=== PATIENT | female | born 1945 | race Caucasian/White ===

== ENCOUNTER → 2016-11-05 | Outpatient (CLI) | payer OTHER | LOC: FIMAGING 11:53 | PROVIDERS: ATTEND Internal Medicine | DX: Z12.31 Encounter for screening mammogram for malignant neoplasm of breast (principal) | CPT/HCPCS: 90662; G0008; G0202 ==

== ENCOUNTER 2017-03-14 20:02 | Inpatient (IN) | payer OTHER ==
--- NOTE | 2017-03-14 20:38 | CPEKG ---
Heart Rate: 57 RR Interval: 1053 P-R Interval: 132 QRSD Interval: 86 QT Interval: 424 QTC Interval: 413 P Farnam: 71 QRS Farnam: -41 T Wave Farnam: 45 EKG Severity - BORDERLINE ECG - EKG Impression: SINUS RHYTHM EKG Impression: LEFT AXIS DEVIATION EKG Impression: BORDERLINE R WAVE PROGRESSION, ANTERIOR LEADS EKG Impression: BORDERLINE T ABNORMALITIES, ANTERIOR LEADS Electronically Signed By: Linda Villa 14-Mar-2017 22:04:36
[2017-03-14 20:42] LABS: PLATELET COUNT 243 10^3/uL (150-400)
--- NOTE | 2017-03-14 20:44 | EDPHY ---
H & P Time Seen by Provider: 03/14/17 20:13 HPI/ROS: CHIEF COMPLAINT: Abdominal pain HISTORY OF PRESENT ILLNESS: The patient is a 72 y/o female with a history of prior small bowel obstructions complaining of abdominal pain, onset 3:30 PM, 5 hours ago. She ate lunch normally at noon. Around 3:30 PM, she was sitting down when she developed generalized abdominal pain. She rates the pain as 8 or 9 out of 10. The pain is constant, located in the mid-abdomen and shoots upwards. No associated symptoms and no known alleviating or aggravating factors. She denies nausea, vomiting, diarrhea, or any other associated symptoms. She took 2 aspirin for the pain. She has a family history of aortic aneurysm. REVIEW OF SYSTEMS: A 10 point review of systems was performed and is negative with the exception of the elements mentioned in the history of present illness. Past Medical/Surgical History: 1. Hysterectomy 2. Bowel obstruction 3. Cholecystectomy 4. Asthma 5. Family history of aortic aneurisms Social History: Son at bedside, lives in [place], retired Smoking Status: Never smoked Physical Exam: General Appearance: Alert, pleasant, stoic, appears in pain Eyes: Pupils equal and round, no conjunctival pallor or injection ENT, Mouth: Mucous membranes moist Neck: Normal inspection Respiratory: Lungs are clear to auscultation Cardiovascular: Regular rate and rhythm Gastrointestinal: Abdomen is soft and non-tender, pulsatile mass in the upper abdomen Neurological: A&O, nonfocal exam Skin: Warm and dry Extremities: Normal inspection Psychiatric: Mood and affect normal Constitutional: Initial Vital Signs Temperature (C) 36.4 C 03/14/17 20:09 Heart Rate 68 03/14/17 20:09 Respiratory Rate 18 03/14/17 20:09 Blood Pressure 144/68 H 03/14/17 20:09 O2 Sat (%) 93 03/14/17 20:09 O2 Delivery Mode Room Air Allergies/Adverse Reactions: erythromycin base Allergy (Verified 03/14/17 20:07) No Allergies [NKDA] Allergy (Verified 05/21/10 15:33) Home Medications: Medication Instructions Recorded Albuterol [Proventil Inhaler HFA 2 puffs IH Q4 PRN 09/22/15 (*)] Fluticasone/Salmeter 100/50Mcg 1 puffs IH DAILY #0 09/22/15 [Advair 100/50 (*)] Levothyroxine [Synthroid 137 mcg 137 mcg PO DAILY06 03/15/17 (*)] Medical Decision Making - Diagnostics EKG Interpretation: EKG interpreted by me reveals normal sinus rhythm, rate 57, left axis deviation , poor R-wave progression, T-wave flattening in lead V2 and V3. Similar to EKG dated 09/22/2015. Imaging Results: CT scan of the abdomen and pelvis reveals mildly dilated SB and no aortic aneurysm. ED Course/Re-evaluation: The patient presents with sudden onset epigastric pain. On exam she has a pulsatile mass in her upper abdomen. She has a family history of aortic aneurysm. CT angiogram of the abdomen and pelvis ordered. CT scan is unremarkable and results discussed with the patient. Abdominal exam remains unchanged. GI cocktail given. Will reassess after GI cocktail. No change in epigastric pain after GI cocktail. Continues to have moderate to severe and persistent pain. Abdomen remains benign. Query early SBO. Dilaudid 0.5 mg IV and Zofran 4 mg IV given. Given unclear etiology of persistent pain, will admit for observation. NPO for now. The hospitalist service was consulted for admission. Differential Diagnosis: Differential diagnosis includes though it is not limited to appendicitis, cholecystitis, diverticulitis, pyelonephritis, bowel perforation, small bowel obstruction. - Data Points Laboratory Results: Laboratory Results 03/15/17 04:00 03/15/17 04:00 Medications Given: Enoxaparin Sodium (Lovenox) 40 mg SC DAILY [facility] Stop: 09/11/17 08:59 Last Admin: 03/17/17 11:56 Dose: 40 mg Hydromorphone HCl (Dilaudid) 2 mg PO Q4HRS PRN PRN Reason: Pain, Severe Able to Take PO Stop: 03/24/17 22:26 Last Admin: 03/15/17 08:44 Dose: 2 mg Hydromorphone HCl (Dilaudid) 0.2 - 1 mg IVP Q2 PRN PRN Reason: Pain, Severe Unable to Take PO Stop: 03/24/17 22:26 Last Admin: 03/17/17 01:33 Dose: 0.5 mg Potassium Chloride/Dextrose/Sod Cl (D5w 1/2 Ns W/ 20 Kcl/L) 1,000 mls @ 100 mls /hr IV CONT KERA Stop: 09/11/17 15:59 Last Admin: 03/17/17 05:43 Dose: 1,000 mls Lidocaine (Lidocaine 2% Viscous) 5 ml PO Q6HRS PRN PRN Reason: Mucositis, Mouth Pain Stop: 09/12/17 13:31 Last Admin: 03/16/17 14:45 Dose: 5 ml Metoclopramide HCl (Reglan Injection) 10 mg IVP Q6HRS PRN PRN Reason: Nausea/Vomiting, Can't Take PO Stop: 09/11/17 10:23 Last Admin: 03/15/17 11:13 Dose: 10 mg Miscellaneous Medication (Fluticasone/Salmeter 100/50mcg [Advair 100/50 (*)]) 1 puffs IH DAILY [facility] Stop: 09/12/17 08:59 Last Admin: 03/17/17 08:47 Dose: 1 inh Miscellaneous Medication (Levothyroxine [Synthroid 137 Mcg (*)]) 137 mcg PO DAILY06 [facility] Stop: 09/11/17 09:14 Last Admin: 03/17/17 05:44 Dose: 137 mcg Ondansetron HCl (Zofran Odt) 4 mg PO Q4HRS PRN PRN Reason: Nausea/Vomiting, Use 1st Stop: 09/10/17 22:26 Last Admin: 03/15/17 05:48 Dose: 4 mg Ondansetron HCl (Zofran) 4 - 8 mg IVP Q4HRS PRN PRN Reason: Nausea/Vomiting, Can't Take PO Stop: 09/10/17 22:26 Last Admin: 03/16/17 02:20 Dose: 4 mg Throat Lozenges (Cepacol Lozenge) 1 ea PO PRN PRN PRN Reason: Sore Throat Stop: 09/13/17 11:10 Last Admin: 03/17/17 11:56 Dose: 1 ea Discontinued Medications Hydrocodone Bitart/Acetaminophen ([place] 5/325mg Prepack#6) 1 btl TAKEHOME EDNOW ONE Stop: 03/14/17 22:28 Last Admin: 03/14/17 23:29 Dose: Not Given Al Hydroxide/Mg Hydroxide (Maalox Susp) 30 ml PO ONCE ONE Stop: 03/14/17 21:42 Last Admin: 03/14/17 21:59 Dose: 30 ml Diazepam (Valium 5 Mg Prepack#4) 1 btl TAKEHOME EDNOW ONE Stop: 03/14/17 22:28 Last Admin: 03/14/17 23:29 Dose: Not Given Hydromorphone HCl (Dilaudid) 0.5 mg IVP EDNOW ONE Stop: 03/14/17 22:21 Last Admin: 03/14/17 22:32 Dose: 0.5 mg Hydromorphone HCl (Dilaudid) 0.2 - 0.4 mg IVP Q4HRS PRN PRN Reason: Pain, Severe Unable to Take PO Stop: 03/24/17 22:26 Last Admin: 03/15/17 06:53 Dose: 0.4 mg Hyoscyamine Sulfate (Levsin, Hyomax-Sl) 0.25 mg PO ONCE ONE Stop: 03/14/17 21:42 Last Admin: 03/14/17 21:55 Dose: 0.25 mg Sodium Chloride (Ns) 1,000 mls @ 100 mls/hr IV CONT KERA Stop: 09/10/17 22:29 Last Admin: 03/15/17 10:16 Dose: 1,000 mls Lidocaine (Lidocaine 2% Viscous) 15 ml PO ONCE ONE Stop: 03/14/17 21:42 Last Admin: 03/14/17 21:55 Dose: 15 ml Ondansetron HCl (Zofran) 4 mg IVP EDNOW ONE Stop: 03/14/17 22:21 Last Admin: 03/14/17 22:32 Dose: 4 mg Ondansetron HCl (Zofran) 4 mg IVP Q4HRS PRN PRN Reason: Nausea/Vomiting, Can't Take PO Stop: 09/10/17 22:26 Last Admin: 03/14/17 23:59 Dose: 4 mg Departure - [facility] Clinical Impression: Abdominal pain Qualifiers: Abdominal location: epigastric Qualified Code(s): R10.13 - Epigastric pain Condition: Good
[2017-03-14] MEDS ORDERED: IOPAMIDOL (ISOVUE 370) 100 ML BTL IV ONE (20:51)
[2017-03-14] MEDS ORDERED: HYOSCYAMINE SULFATE 0.125 MG TAB PO ONE (21:41)
[2017-03-14] MEDS ORDERED: MAG HYDROX/AL HYDROX/SIMETH 30 ML UDCUP PO ONE (21:41)
[2017-03-14] MEDS ORDERED: LIDOCAINE 2% VISCOUS 15 ML UDCUP PO ONE (21:41)
[2017-03-14] MEDS ORDERED: ONDANSETRON 4 MG/2 ML VIAL IVP ONE (22:20)
[2017-03-14] MEDS ORDERED: HYDROmorphONE/DILAUDID 1 MG/ML INJ IVP ONE (22:20)
[2017-03-14] MEDS ORDERED: ACETAMINOPHEN 325 MG TAB PO PRN (22:27)
[2017-03-14] MEDS ORDERED: HYDROCOD/APAP 5/325 PREPACK#6 BTL TAKEHOME ONE (22:27)
[2017-03-14] MEDS ORDERED: DIAZEPAM 5 MG PREPACK#4 BTL TAKEHOME ONE (22:27)
[2017-03-14] MEDS ORDERED: ONDANSETRON 4 MG/2 ML VIAL IVP PRN (22:27)
[2017-03-14] MEDS ORDERED: ONDANSETRON DISINTEGRATING 4 MG TAB PO PRN (22:27)
--- NOTE | 2017-03-14 23:01 | PDGENHP ---
History and Physical - Chief Complaint Abdominal pain - History of Present Illness 72 yo F w/ hx of asthma and hypothyroid presents with abdominal pain. Patient states she noted sudden onset severe (8) central abdominal pain starting around 3 PM. The pain is sharp and does not vary. She denies nausea, vomiting, and diarrhea. She has had numerous abdominal surgeries in the past and thinks this feels like previous bowel obstructions. She also denies melena, BRBPR, and dysuria. History Information - Allergies/Home Medication List Allergies/Adverse Reactions: erythromycin base Allergy (Verified 03/14/17 20:07) No Allergies [NKDA] Allergy (Verified 05/21/10 15:33) Home Medications: Advair 100/50 (*) 1 puffs IH BID 09/22/15 [Last Taken 09/22/15 11:00] Albuterol [Proventil Inhaler HFA (*)] 2 puffs IH Q4 PRN 09/22/15 [Last Taken 12:00] Levothyroxine Sodium [Synthroid] 137 mcg PO DAILY 09/22/15 [Last Taken 09/22/15 08:00] I have personally reviewed and updated: family history, medical history - Past Medical History asthma Additional medical history: Hypothyroid - Surgical History Reports: cholecystectomy, hysterectomy Additional surgical history: Ex-lap for SBO ~20 years ago - Family History Positive for: CAD Additional family history: AAA - Social History Smoking Status: Never smoked Review of Systems Review of Systems: ROS: 10pt was reviewed & negative except for what was stated in HPI & below Physical Exam Physical Exam: Temp Pulse Resp BP Pulse Ox 36.8 C 65 18 128/64 H 95 03/14/17 21:17 03/14/17 22:06 03/14/17 22:06 03/14/17 22:06 03/14/17 22:06 Constitutional: no apparent distress, uncomfortable Eyes: PERRL, EOMI Ears, Nose, Mouth, Throat: moist mucous membranes, no oral mucosal ulcers Cardiovascular: regular rate and rhythym, systolic murmur Respiratory: no respiratory distress, clear to auscultation Gastrointestinal: normoactive bowel sounds, tenderness (Mild, central), No guarding, No rebound, No distension Skin: warm, normal color Musculoskeletal: full muscle strength, no muscle tenderness Neurologic: AAOx3, CN II-XII Intact Psychiatric: interacting appropriately, not anxious Lab Data & Imaging Review 03/14/17 20:30 03/14/17 20:30 WBC 10.90 10^3/uL (3.80-9.50) H 03/14/17 20:30 RBC 4.98 10^6/uL (4.18-5.33) 03/14/17 20:30 Hgb 16.4 g/dL (12.6-16.3) H 03/14/17 20:30 POC Hgb 15.6 gm/dL (12.6-16.3) 03/14/17 20:44 Hct 47.1 % (38.0-47.0) H 03/14/17 20:30 POC Hct 46 % (38-47) 03/14/17 20:44 MCV 94.6 fL (81.5-99.8) 03/14/17 20:30 MCH 32.9 pg (27.9-34.1) 03/14/17 20:30 MCHC 34.8 g/dL (32.4-36.7) 03/14/17 20:30 RDW 13.2 % (11.5-15.2) 03/14/17 20:30 Plt Count 243 10^3/uL (150-400) 03/14/17 20:30 MPV 9.1 fL (8.7-11.7) 03/14/17 20:30 Neut % (Auto) 63.6 % (39.3-74.2) 03/14/17 20:30 Lymph % (Auto) 21.8 % (15.0-45.0) 03/14/17 20:30 [place] % (Auto) 4.6 % (4.5-13.0) 03/14/17 20:30 Eos % (Auto) 8.7 % (0.6-7.6) H 03/14/17 20:30 Baso % (Auto) 0.9 % (0.3-1.7) 03/14/17 20:30 Nucleat RBC Rel Count 0.0 % (0.0-0.2) 03/14/17 20:30 Absolute Neuts (auto) 6.93 10^3/uL (1.70-6.50) H 03/14/17 20:30 Absolute Lymphs (auto) 2.38 10^3/uL (1.00-3.00) 03/14/17 20:30 Absolute Monos (auto) 0.50 10^3/uL (0.30-0.80) 03/14/17 20:30 Absolute Eos (auto) 0.95 10^3/uL (0.03-0.40) H 03/14/17 20:30 Absolute Basos (auto) 0.10 10^3/uL (0.02-0.10) 03/14/17 20:30 Absolute Nucleated RBC 0.00 10^3/uL (0-0.01) 03/14/17 20:30 Immature Gran % 0.4 % (0.0-1.1) 03/14/17 20:30 Immature Gran # 0.04 10^3/uL (0.00-0.10) 03/14/17 20:30 POC Sodium 142 mEq/L (135-145) 03/14/17 20:44 Sodium 142 mEq/L (135-145) 03/14/17 20:30 POC Potassium 3.5 mEq/L (3.3-5.0) 03/14/17 20:44 Potassium 3.7 mEq/L (3.5-5.2) 03/14/17 20:30 POC Chloride 105 mEq/L (97-110) 03/14/17 20:44 Chloride 102 mEq/L (97-110) 03/14/17 20:30 Carbon Dioxide 25 mEq/l (22-31) 03/14/17 20:30 Anion Gap 15 mEq/L (8-16) 03/14/17 20:30 POC BUN 11 mg/dL (7-23) 03/14/17 20:44 BUN 12 mg/dL (7-23) 03/14/17 20:30 Creatinine 0.8 mg/dL (0.6-1.0) 03/14/17 20:30 POC Creatinine 0.8 mg/dL (0.6-1.0) 03/14/17 20:44 Estimated GFR > 60 03/14/17 20:30 Glucose 98 mg/dL (70-100) 03/14/17 20:30 POC Glucose 105 mg/dL (70-100) H 03/14/17 20:44 Calcium 10.3 mg/dL (8.5-10.4) 03/14/17 20:30 Total Bilirubin 1.2 mg/dL (0.1-1.4) 03/14/17 20:30 Conjugated Bilirubin 0.4 mg/dL (0.0-0.5) 03/14/17 20:30 Unconjugated Bilirubin 0.8 mg/dL (0.0-1.1) 03/14/17 20:30 AST 25 IU/L (14-46) 03/14/17 20:30 ALT 36 IU/L (9-52) 03/14/17 20:30 Alkaline Phosphatase 88 IU/L (38-126) 03/14/17 20:30 Troponin I < 0.012 ng/mL (0.000-0.034) 03/14/17 20:30 Total Protein 8.1 g/dL (6.3-8.2) 03/14/17 20:30 Albumin 4.7 g/dL (3.5-5.0) 03/14/17 20:30 Lipase 75 IU/L (23-300) 03/14/17 20:30 Imaging Review: Imaging Impressions Abdomen/Pelvis CTA 03/14/17 20:47 Impression: 1. Negative for abdominal aortic aneurysm. 2. Mildly dilated small bowel loops are seen in the pelvis. 3. See above report for additional findings. Results called and discussed with Linda Villa M.D. on March 14, 2017 at 2139 hours. Assessment & Plan Assessment: 72 yo F w/ asthma and hypothyroid p/w abdominal pain of unclear etiology. Plan: 1. Abdominal pain - Unclear etiology; CT shows only mildly dilated loops of bowel in the pelvis. Mild SBO seems like a possibility as patient has not passed gas or had a BM since onset. She denies nausea, vomiting, and diarrhea. She also denies BRBPR and melena. LFTs WNL. She is s/p hysterectomy and cholecystectomy. She denies symptoms c/w GERD/PUD. - Clear liquid diet, mIVF - Dilaudid PO, IV for pain control - If pain worsens or distention develops, will order NGT placement - Will order abdominal XR for the morning 2. Asthma - On Advair and albuterol as outpatient, no e/o acute exacerbation 3. Hypothyroid - On LTX as outpatient Diet - Clears Code - Full Ppx - LMWH, low dose Dispo - Admit to observation status
[2017-03-14] MEDS: NS 1,000 ML IV SCH (23:58)
[2017-03-14] MEDS: HYDROmorphONE/DILAUDID 1 MG/ML INJ IVP PRN (23:59)
[2017-03-15] MEDS: HYDROmorphONE/DILAUDID 2 MG TAB PO PRN ×2 (01:03→08:44)
[2017-03-15 05:08] LABS: PLATELET COUNT 199 10^3/uL (150-400)
[2017-03-15] MEDS: HYDROmorphONE/DILAUDID 1 MG/ML INJ IVP PRN ×2 (06:53→13:42)
[2017-03-15] MEDS: ENOXAPARIN 40 MG/0.4 ML SYR SC SCH (08:37)
[2017-03-15] MEDS: NS 1,000 ML IV SCH (10:16)
[2017-03-15] MEDS ORDERED: METOCLOPRAMIDE 10 MG TAB PO PRN (10:24)
[2017-03-15] MEDS ORDERED: METOCLOPRAMIDE 10 MG/2 ML VIAL IVP PRN (10:24)
[2017-03-15] MEDS: LEVOTHYROXINE 137 MCG PO SCH (13:27)
[2017-03-15] MEDS: ONDANSETRON 4 MG/2 ML VIAL IVP PRN (13:43)
--- NOTE | 2017-03-15 14:40 | ASMTCMCOM ---
CM Note CM Note Notes: Chart reviewed. Patient normally lives independent with no needs identified. Reviewed chart and discussed in rounds. Diagnosis of possible SBO. Likely to dc to home with no needs. CM available should needs arise. Date Signed: 03/15/2017 02:40 PM Electronically Signed By:Selam Arreguin RN
--- NOTE | 2017-03-15 16:05 | HOSPPROG ---
Hospitalist Progress Note Assessment/Plan: Assessment: 72 yo F p/w acute SBO Plan: 1. Small bowel obstruction. Acute, new problem, further w/u indicated. Evidenced by dilated loops of small bowel on CT, abd pain/N/V w/o BM or flatus, hx of SBO 20yrs ago w/ AUDI by Dr. Iniguez - d/w Dr. Iniguez, he affirms he will consult on patient - get abd x-ray to ensure no worsening of dilation, get CXR to ensure no asp PNA given worsening cough - suspect cough 2/2 diaphragmatic immobility - de-escalate diet to NPO w/ ice chips, IVF adjustment - cont supportive care w/ anti-emetics (reglan, then zofran), pain Rx (dilaudid) - patient desires to hold on NGT at this time, cont to offer 2. Asthma. Chronic, cont Advair and albuterol, no exacerbation 3. Abd pain. Likely 2/2 SBO, EKG w/o ischemic changes, NSR w/ Q iii/TWI V2-V3 ( personally interpreted) Diet - Chips Code - Full Ppx - LMWH, low dose Dispo - Upgrade to inpatient admission status given anticipated LOS > 48hrs for reasonable medical necessity including acute SBO, worsening today Subjective: vomiting beginning this AM, cough this AM Objective: Vital Signs Temp Pulse Resp BP Pulse Ox 36.6 C 68 18 143/63 H 95 03/15/17 12:00 03/15/17 12:00 03/15/17 12:00 03/15/17 12:00 03/15/17 12:00 Laboratory Results 03/15/17 04:00 03/15/17 04:00 03/14/17 03/15/17 03/16/17 05:59 05:59 05:59 Intake Total 1100 Output Total 800 475 Balance 300 -475 - Physical Exam Constitutional: no apparent distress, appears nourished, uncomfortable, No not in pain (mild abd) Cardiovascular: regular rate and rhythym, no murmur, rub, or gallop, No irregularly irregular, No tachycardia, No edema Respiratory: reduced air movement (poor insp effort), No expiratory wheeze, No inspiratory crackles, No bronchial breath sounds, No respiratory distress Gastrointestinal: tenderness (mild mid abd), No normoactive bowel sounds ( hypoactive bowel sounds), No guarding, No distension Skin: No rash Neurologic: AAOx3, sensation intact bilaterally, No weakness Psychiatric: interacting appropriately, not anxious, not encephalopathic, thought process linear ICD10 Worksheet Patient Problems: Problems Problem Status Onset Pneumonia Acute Chronic Disease Mgmt/Transitional Care Acute Abdominal pain Acute
[2017-03-15] MEDS: D5W 1/2 NS W/ 20 KCl/L 1,000 ML IV SCH (16:09)
--- NOTE | 2017-03-15 16:32 | PDMN ---
Medical Necessity Medical necessity: change to IP; los>2mn for acute SBO, w/dilated loops of small bowel per CT, abd pain, N/V, W/O BM or flatus, and worsening cough; requires surgical consult, r/o asp PNA, IVF, and continued supportive care (pt declines NGT@ this time); comorbid asthma, hx abd surgeries and SBO; per order and progress note 03/15/17
--- NOTE | 2017-03-15 18:38 | GCON ---
[f rep st] CONSULTATION GENERAL SURGERY CONSULTATION REASON FOR CONSULT: Small-bowel obstruction. HISTORY OF PRESENT ILLNESS: The patient is a 72-year-old female, known to Dr. Iniguez from prior abdominal surgeries, who presented with crampy, mostly upper abdominal pain, associated with nausea and vomiting for about a day. CT angiogram was done and showed mildly dilated small loops of bowel in the pelvis. Abdominal x-ray again showed dilatation of the small bowel, suggesting bowel obstruction. The patient has a past abdominal surgical history significant for hysterectomy and cholecystectomy, as well as small-bowel obstruction surgery about 20 years ago. She was told by her [employer] surgeon that she had many adhesions. She has not had any similar episodes since her bowel obstruction surgery [address] Iniguez. She says she has been comfortable for most of the day, but she is just starting to have some increased abdominal pain and nausea. She does feel like she could vomit. She is reconsidering nasogastric tube placement. PAST MEDICAL HISTORY: Includes asthma and hypothyroidism. PAST SURGICAL HISTORY: As described above, includes hysterectomy, cholecystectomy, laparotomy for bowel obstruction. MEDICATIONS: Include Advair, albuterol, levothyroxine. ALLERGIES: Erythromycin. SOCIAL HISTORY: Never smoker. REVIEW OF SYSTEMS: 10-point Review of Systems performed, and negative aside from that in the HPI. PHYSICAL EXAMINATION: GENERAL: Reveals a well-developed, well-nourished, but thin 72-year-old female in no acute distress. HEENT: Normocephalic, atraumatic. Sclerae white. Mucous membranes moist. Pupils equal and round. CHEST: No work of breathing. CARDIAC: Regular rate and rhythm. ABDOMEN: Hypoactive bowel sounds, with diffuse tenderness. No guarding or rebound. Soft bloating, but no firm distention. GENITALIA: Deferred. PSYCH: Normal mood and affect. SKIN: Warm and dry. EXTREMITIES: No edema. IMPRESSION: This is a 72-year-old female with a possible bowel obstruction. PLAN: Agree with conservative management with bowel rest, supportive IV fluids , pain medicines, and antiemetics as needed. She is also open to having a nasogastric tube, which I think is a good idea, for decompression as well of her symptoms, and she did vomit this morning and is beginning to feel nauseated again when I see her early this evening. I will discuss with Dr. Iniguez. We will get an abdominal x-ray in the morning, and we will continue to follow the patient with you. /[id number]/MODL MTDD
[2017-03-16] MEDS: D5W 1/2 NS W/ 20 KCl/L 1,000 ML IV SCH ×3 (01:15→20:03)
[2017-03-16] MEDS: ONDANSETRON 4 MG/2 ML VIAL IVP PRN ×2 (01:38→02:20)
[2017-03-16] MEDS: HYDROmorphONE/DILAUDID 1 MG/ML INJ IVP PRN (02:21)
[2017-03-16 04:47] LABS: PLATELET COUNT 192 10^3/uL (150-400)
[2017-03-16] MEDS: LEVOTHYROXINE 137 MCG PO SCH (05:25)
--- NOTE | 2017-03-16 09:15 | SOAPPROG ---
SOAP Progress Note Assessment/Plan: Assessment: MORE COMFORTABLE/ AFEBRILE/ ABD SOFT,NONTENDER, +BS, MILDLY DISTENDED NG 400 Plan:CHECK 2-WAY 03/16/17 09:13 Objective: Vital Signs Temp Pulse Resp BP Pulse Ox 37.1 C 60 18 116/52 L 93 03/16/17 07:40 03/16/17 09:07 03/16/17 09:07 03/16/17 07:40 03/16/17 09:07 Laboratory Results 03/16/17 03:24 03/16/17 03:24 03/15/17 03/16/17 03/17/17 05:59 05:59 05:59 Intake Total 3051 Output Total 1450 Balance 1601 ICD10 Worksheet Patient Problems: Problems Problem Status Onset Abdominal pain Acute Chronic Disease Mgmt/Transitional Care Acute Pneumonia Acute
[2017-03-16] MEDS: ENOXAPARIN 40 MG/0.4 ML SYR SC SCH (10:09)
[2017-03-16] MEDS ORDERED: LIDOCAINE 2% VISCOUS 15 ML UDCUP PO PRN (13:32)
--- NOTE | 2017-03-16 18:40 | HOSPPROG ---
Hospitalist Progress Note Assessment/Plan: Assessment: 72 yo F p/w acute SBO Plan: 1. Small bowel obstruction. Acute, evidenced by dilated loops of small bowel on CT, abd pain/N/V w/o BM or flatus, hx of SBO 20yrs ago w/ AUDI by Dr. Iniguez - repeat abd x-ray shows ongoing obstruction, viewed w/ patient/son - suspect cough 2/2 diaphragmatic immobility - cont NGT - cont supportive care w/ anti-emetics (reglan, then zofran), pain Rx (dilaudid) - prn lidocaine to help w/ NGT tolerance - no flatus, ongoing - counseled patient/son extensively regarding causes of SBOs, tx course, resolution 2. Asthma. Chronic, cont Advair and albuterol, no exacerbation 3. Abd pain. Likely 2/2 SBO, EKG w/o ischemic changes, NSR w/ Q iii/TWI V2-V3 Diet - NPO w/ NGT Code - Full Ppx - LMWH, low dose Dispo - ADD uncertain, ongoing Subjective: patient w/ posterior throat discomfort, no flatus Objective: Vital Signs Temp Pulse Resp BP Pulse Ox 37.2 C 64 12 115/50 L 96 03/16/17 15:54 03/16/17 15:54 03/16/17 15:54 03/16/17 15:54 03/16/17 15:54 Laboratory Results 03/16/17 03:24 03/16/17 03:24 03/15/17 03/16/17 03/17/17 05:59 05:59 05:59 Intake Total 3051 1200 Output Total 1450 2250 Balance 1601 -1050 - Time Spent With Patient Time Spent with Patient: greater than 35 minutes Time Spent with Patient: Greater than 35 minutes spent on this patients care, greater than 50% of time spent counseling, educating, and coordinating care regarding the above mentioned plan. - Physical Exam Constitutional: no apparent distress, not in pain, uncomfortable Ears, Nose, Mouth, Throat: other (NGT in place) Cardiovascular: regular rate and rhythym, no murmur, rub, or gallop, No edema Respiratory: no respiratory distress, no rales or rhonchi, clear to auscultation Gastrointestinal: tenderness (mild), distension (mild), No normoactive bowel sounds (absent bowel sounds), No guarding Neurologic: AAOx3 Psychiatric: interacting appropriately, not anxious, not encephalopathic, thought process linear ICD10 Worksheet Patient Problems: Problems Problem Status Onset Pneumonia Acute Chronic Disease Mgmt/Transitional Care Acute Abdominal pain Acute
[2017-03-17] MEDS: HYDROmorphONE/DILAUDID 1 MG/ML INJ IVP PRN (01:33)
[2017-03-17] MEDS: D5W 1/2 NS W/ 20 KCl/L 1,000 ML IV SCH ×2 (05:43→16:34)
[2017-03-17] MEDS: LEVOTHYROXINE 137 MCG PO SCH (05:44)
[2017-03-17] MEDS ORDERED: ALBUTEROL 60 PUFFS/8 GM MDI IH PRN (09:00)
--- NOTE | 2017-03-17 09:30 | SOAPPROG ---
SOAP Progress Note Assessment/Plan: Assessment/Plan: 72 Y F SBO. Clinically improving. Pain, N/V resolved and now passing gas. NGT output still high. AXR yesterday subtle SBO. Will get SBFT today. If clear, then trial clears and advance diet. Can initially do this with tube clamped and in place--patient very nervous to have the need for replacement of NGT. S: passing gas this am. a little last night, but more this am. O: alert, nad mmm, ng in place ctab rrr abd soft, nt, hypoactive BS 03/17/17 09:28 Objective: Vital Signs Temp Pulse Resp BP Pulse Ox 37.2 C 61 20 114/64 91 L 03/17/17 07:22 03/17/17 07:22 03/17/17 08:48 03/17/17 07:22 03/17/17 07:22 Laboratory Results 03/16/17 03:24 03/17/17 01:20 03/16/17 03/17/17 03/18/17 05:59 05:59 05:59 Intake Total 3051 1550 Output Total 1450 3450 300 Balance 1601 -1900 -300 ICD10 Worksheet Patient Problems: Problems Problem Status Onset Abdominal pain Acute Chronic Disease Mgmt/Transitional Care Acute Pneumonia Acute
[2017-03-17] MEDS: ENOXAPARIN 40 MG/0.4 ML SYR SC SCH (11:56)
[2017-03-17] MEDS: CEPACOL LOZENGE PO PRN ×3 (11:56→22:40)
--- NOTE | 2017-03-17 17:44 | HOSPPROG ---
Hospitalist Progress Note Assessment/Plan: Assessment: 72 yo F p/w acute SBO Plan: 1. Small bowel obstruction. Acute, evidenced by dilated loops of small bowel on CT, abd pain/N/V w/o BM or flatus, hx of SBO 20yrs ago w/ AUDI by Dr. Iniguez - SB follow-thru w/ residual dilation/edema, clinically resolving w/ passing flatus today, no BMs - cont NGT, clamping per gen surg - cont supportive care w/ anti-emetics (reglan, then zofran), pain Rx (dilaudid) - prncepacol to help w/ NGT tolerance 2. Asthma. Chronic, cont Advair and albuterol, no exacerbation 3. Abd pain. Likely 2/2 SBO, EKG w/o ischemic changes, NSR w/ Q iii/TWI V2-V3 Diet - NPO w/ NGT, advancement of diet under direction of gen surg Code - Full Ppx - LMWH, low dose Dispo - ADD uncertain, ongoing Subjective: patient w/ flatus, less pain Objective: Vital Signs Temp Pulse Resp BP Pulse Ox 36.7 C 74 15 140/66 H 94 03/17/17 16:00 03/17/17 16:00 03/17/17 16:00 03/17/17 16:00 03/17/17 16:00 Laboratory Results 03/16/17 03:24 03/17/17 01:20 03/16/17 03/17/17 03/18/17 05:59 05:59 05:59 Intake Total 3051 1550 Output Total 1450 3450 1200 Balance 1601 -1900 -1200 - Physical Exam Constitutional: no apparent distress, appears nourished, not in pain, uncomfortable Ears, Nose, Mouth, Throat: other (NGT in place) Cardiovascular: regular rate and rhythym, no murmur, rub, or gallop Respiratory: no respiratory distress, no rales or rhonchi, clear to auscultation Gastrointestinal: tenderness (mild), distension (mild), No normoactive bowel sounds (hypoactive bowel sounds), No guarding Neurologic: AAOx3, sensation intact bilaterally, No weakness Psychiatric: interacting appropriately, not anxious, not encephalopathic, thought process linear ICD10 Worksheet Patient Problems: Problems Problem Status Onset Pneumonia Acute Chronic Disease Mgmt/Transitional Care Acute Abdominal pain Acute
--- NOTE | 2017-03-17 19:10 | SOAPPROG ---
SOAP Progress Note Assessment/Plan: Assessment: MORE COMFORTABLE/ AFEBRILE/ ABD SOFT,NONTENDER, +BS, MILDLY DISTENDED NG 400 Plan:CHECK 2-WAY 03/16/17 09:13 03/17/17 19:10 DOING WELL EXCEPT FOR LARGE NG OUTPUT/SOME FLATUS/SMALL-BOWEL FOLLOW-THROUGH NEGATIVE FOR OBSTRUCTION HOPEFULLY CLAMP NG IN THE A.M. AND POSSIBLY START CLEARS Objective: Vital Signs Temp Pulse Resp BP Pulse Ox 36.7 C 74 15 140/66 H 94 03/17/17 16:00 03/17/17 16:00 03/17/17 16:00 03/17/17 16:00 03/17/17 16:00 Laboratory Results 03/16/17 03:24 03/17/17 01:20 03/16/17 03/17/17 03/18/17 05:59 05:59 05:59 Intake Total 3051 1550 1100 Output Total 1450 3450 1550 Balance 1601 -1900 -450 ICD10 Worksheet Patient Problems: Problems Problem Status Onset Abdominal pain Acute Chronic Disease [facility]/Transitional Care Acute Pneumonia Acute
[2017-03-18] MEDS: HYDROmorphONE/DILAUDID 1 MG/ML INJ IVP PRN (00:54)
[2017-03-18] MEDS: D5W 1/2 NS W/ 20 KCl/L 1,000 ML IV SCH ×3 (00:55→17:51)
[2017-03-18] MEDS: CEPACOL LOZENGE PO PRN ×2 (00:56→20:17)
[2017-03-18] MEDS: LEVOTHYROXINE 137 MCG PO SCH (06:24)
[2017-03-18] MEDS: ENOXAPARIN 40 MG/0.4 ML SYR SC SCH (08:02)
--- NOTE | 2017-03-18 10:10 | SOAPPROG ---
SOAP Progress Note Assessment/Plan: Assessment: MORE COMFORTABLE/ AFEBRILE/ ABD SOFT,NONTENDER, +BS, MILDLY DISTENDED NG 400 Plan:CHECK 2-WAY 03/16/17 09:13 03/17/17 19:10 DOING WELL EXCEPT FOR LARGE NG OUTPUT/SOME FLATUS/SMALL-BOWEL FOLLOW-THROUGH NEGATIVE FOR OBSTRUCTION HOPEFULLY CLAMP NG IN THE A.M. AND POSSIBLY START CLEARS 03/18/17 10:09 abd soft, nondistended, some flatus/ still large ng out/ will try clamping tube Objective: Vital Signs Temp Pulse Resp BP Pulse Ox 37.1 C 65 18 97/73 L 94 03/18/17 08:00 03/18/17 08:00 03/18/17 08:00 03/18/17 08:00 03/18/17 08:00 Laboratory Results 03/16/17 03:24 03/17/17 01:20 03/17/17 03/18/17 03/19/17 05:59 05:59 05:59 Intake Total 1550 2300 Output Total 3450 1850 Balance -1900 450 ICD10 Worksheet Patient Problems: Problems Problem Status Onset Abdominal pain Acute Chronic Disease [facility]/Transitional Care Acute Pneumonia Acute
[2017-03-18] MEDS ORDERED: ACETAMINOPHEN 650 MG/20.3 ML UDCUP PO PRN (11:12)
--- NOTE | 2017-03-18 15:35 | HOSPPROG ---
Hospitalist Progress Note Assessment/Plan: 72 yo F new to my care on 03/18/2017 p/w acute SBO 1. Small bowel obstruction with hx of SBO 20yrs ago w/ AUDI by Dr. Iniguez -discussed case Dr. Iniguez who plans to clamp the NG tube today -start clear liquid diet - cont supportive care w/ anti-emetics (reglan, then zofran), pain Rx ( dilaudid) - prn cepacol to help w/ NGT tolerance 2. Asthma. Chronic, cont Advair and albuterol, no exacerbation 3. Abd pain. Likely 2/2 SBO, EKG w/o ischemic changes, NSR w/ Q iii/TWI V2-V3 Diet - NPO w/ NGT, advancement of diet under direction of gen surg Code - Full Ppx - LMWH, low dose Dispo - ADD uncertain, ongoing Subjective: No vomiting. Minimal flatus. Reports sore throat which she thinks is due to irritation from the NG tube Objective: Vital Signs Temp Pulse Resp BP Pulse Ox 37.1 C 65 18 97/73 L 94 03/18/17 08:00 03/18/17 08:00 03/18/17 08:00 03/18/17 08:00 03/18/17 08:00 Laboratory Results 03/16/17 03:24 03/17/17 01:20 03/17/17 03/18/17 03/19/17 05:59 05:59 05:59 Intake Total 1550 2300 Output Total 3450 1850 Balance -1900 450 - Physical Exam Constitutional: no apparent distress, appears nourished, not in pain Cardiovascular: regular rate and rhythym, no murmur, rub, or gallop Respiratory: no respiratory distress, no rales or rhonchi, clear to auscultation Gastrointestinal: distension, other (Hypoactive bowel sounds), No soft, non- tender abdomen, No guarding, No rebound Skin: no rashes or abrasions, no fluctuance, no induration Neurologic: AAOx3, sensation intact bilaterally ICD10 Worksheet Patient Problems: Problems Problem Status Onset Pneumonia Acute Chronic Disease Mgmt/Transitional Care Acute Abdominal pain Acute
[2017-03-19] MEDS: D5W 1/2 NS W/ 20 KCl/L 1,000 ML IV SCH (03:49)
[2017-03-19] MEDS: LEVOTHYROXINE 137 MCG PO SCH (06:54)
[2017-03-19] MEDS: ENOXAPARIN 40 MG/0.4 ML SYR SC SCH (08:07)
[2017-03-19 08:47] VITALS: BP 141/70; TEMP 97.7
[2017-03-19 08:57] VITALS: PULSE 70; RESP 16; O2SAT 96
--- NOTE | 2017-03-19 11:35 | SOAPPROG ---
SOAP Progress Note Assessment/Plan: Assessment: MORE COMFORTABLE/ AFEBRILE/ ABD SOFT,NONTENDER, +BS, MILDLY DISTENDED NG 400 Plan:CHECK 2-WAY 03/16/17 09:13 03/17/17 19:10 DOING WELL EXCEPT FOR LARGE NG OUTPUT/SOME FLATUS/SMALL-BOWEL FOLLOW-THROUGH NEGATIVE FOR OBSTRUCTION HOPEFULLY CLAMP NG IN THE A.M. AND POSSIBLY START CLEARS 03/18/17 10:09 abd soft, nondistended, some flatus/ still large ng out/ will try clamping tube 03/19/17 11:34 CONTINUES TO IMPROVE/ ABD SOFT/ AFEBRILE/ TOLERATING CLEARS/ 2-WAY IMPROVED/ DC NG AND ADVANCE DIET HOME SOON AND FU IN OFFICE Objective: Vital Signs Temp Pulse Resp BP Pulse Ox 36.5 C 70 16 141/70 H 96 03/19/17 08:46 03/19/17 08:51 03/19/17 08:51 03/19/17 08:46 03/19/17 08:51 Laboratory Results 03/16/17 03:24 03/17/17 01:20 03/18/17 03/19/17 03/20/17 05:59 05:59 05:59 Intake Total 2300 3735 Output Total 1850 925 550 Balance 450 2810 -550 ICD10 Worksheet Patient Problems: Problems Problem Status Onset Abdominal pain Acute Chronic Disease Mgmt/Transitional Care Acute Pneumonia Acute
--- NOTE | 2017-03-19 12:51 | ASMTCMCOM ---
CM Note CM Note Notes: Discussed pts case in morning rounds. Pt continues to have no needs at time of d/c. CM available for changes. Plan: Independent Date Signed: 03/19/2017 12:50 PM Electronically Signed By:JENNY Rao
--- NOTE | 2017-03-19 15:41 | GDS ---
[f rep st] DISCHARGE SUMMARY DISCHARGE DIAGNOSES: 1. Small-bowel obstruction thought to be due to adhesions. 2. Asthma, controlled. CONSULTANTS: Dr. Darren Iniguez. HOSPITAL COURSE: Small-bowel obstruction: The patient presented to the hospital on 03/14/2017 with symptoms of small-bowel obstruction. She was treated medically with NG tube and IV fluids. Her symp toms slowly improved. Her NG tube was clamped on 03/18/2017 and she was advanced to clear liquid t. On day of discharge, the NG tube was removed and she is tolerating p.o. She has been seen by Dr. Iniguez, who thought it was reasonable for her to be discharged with outpatient followup. PHYSICAL EXAM: VITAL SIGNS: On day of discharge, blood pressure 141/70, pulse 69, respiratory rate 18, O2 saturation 95% on room air, temperature afebrile. GENERAL: No acute distress. LUNGS: Clear . ABDOMEN: Soft, nontender, nondistended. No guarding or rebound tenderness. Normoactive bowel so unds. PERTINENT LABS AND STUDIES: CT angio of the abdomen done 03/14/2017, was negative for an aneurysm. There is mildly dilated small-bowel loops in the pelvis. See report for full details. DISCHARGE MEDICATIONS: Please refer to discharge medication reconciliation [facility] for details. DISCHARGE INSTRUCTIONS: The patient will be discharged from the hospital where she should maintain a dequate p.o. hydration and nutrition. She was urged to seek follow up with Dr. Iniguez in the outpatie nt setting. /[id number]/MODL
--- NOTE | 2017-03-20 15:17 | ASDISCHSUM ---
Discharge Information Plan Status:Home with No Needs Medically Cleared to Leave: Discharge Date:03/19/2017 02:35 PM CM D/C Disposition: ADT D/C Disposition:Home, Routine, Self-Care Projected Discharge Date:03/19/2017 02:35 PM Transportation at D/C: Discharge Delay Reason: Follow-Up Date:03/19/2017 02:35 PM Discharge Slot: Final Diagnosis: Placement Information Patient Contact Information Contact Name:ARIADNA Relationship:Daughter Address: City: [facility] Phone: State/Zip Code: Email: Financial Information Financial Class: Primary Plan Desc:MEDICARE INPATIENT Primary Plan Number:[id number] Secondary Plan Desc:MICHELLE PPO Secondary Plan Number:[id number] Assessment Information [facility] CM Progress Note CM Note CM Note Notes: Chart reviewed. Patient normally lives independent with no needs identified. Reviewed chart and discussed in rounds. Diagnosis of possible SBO. Likely to dc to home with no needs. CM available should needs arise. Date Signed: 03/15/2017 02:40 PM Electronically Signed By:Selam Arreguin RN [facility] CM Progress Note CM Note CM Note Notes: Discussed pts case in morning rounds. Pt continues to have no needs at time of d/c. CM available for changes. Plan: Independent Date Signed: 03/19/2017 12:50 PM Electronically Signed By:JENNY Rao Intervention Information Intervention Type:*ALMONTE-Signed Date of Service:03/15/2017 09:26 AM Patient Type:Observation Staff Member:Tata Mayer Hours: Discipline: Severity: Comment: Intervention Type:*IM-Signed Date of Service:03/19/2017 12:58 PM Patient Type:Inpatient Staff Member:Tata Mayer Hours: Discipline: Severity: Comment:
== END 2017-03-19 14:35 | disposition home or self-care (01) | DRG 390 ==
LOC: F2W 23:36 → OBSVTOIN 03-15 15:59
PROVIDERS: ADMIT Student in an Organized Health Care Education/Training Program; ATTEND Student in an Organized Health Care Education/Training Program
DX: K56.50 Intestinal adhesions [bands], unspecified as to partial versus complete obstruction (principal); J45.909 Unspecified asthma, uncomplicated; E03.9 Hypothyroidism, unspecified
CPT/HCPCS: 82947-QW; 97116-GP; 97161-GP; G0378; G8978-GP-CI; G8979-GP-CI; G8980-GP-CI; J1170; J1650; J2405; J2765; Q9967

== ENCOUNTER → 2018-01-04 | Outpatient (CLI) | payer OTHER | LOC: FIMAGING 13:00 | PROVIDERS: ATTEND Internal Medicine | DX: Z12.31 Encounter for screening mammogram for malignant neoplasm of breast (principal); Z80.3 Family history of malignant neoplasm of breast ==

== ENCOUNTER → 2018-06-02 | Outpatient (CLI) | payer OTHER | LOC: FIMAGING 09:38 | PROVIDERS: ATTEND Internal Medicine | DX: Z13.820 Encounter for screening for osteoporosis (principal); M81.0 Age-related osteoporosis without current pathological fracture; Z78.0 Asymptomatic menopausal state ==